=== PATIENT | male | born 2000 | race American Indian/Alaskan Native ===

== ENCOUNTER 2019-11-29 11:57 | Emergency (ER) | payer SELFPAY ==
--- NOTE | 2019-11-29 12:40 | Emergency Department Report ---
Chief Complaint: Dental/Oral Stated Complaint: TOOTH PAIN Time Seen by Provider: 11/29/19 12:36 - HPI History of Present Illness: 19-year-old -[place] male presents to the emergency room complaining of a toothache x1 week. Patient states that he bit down on something and broke the cavity on his right lower jaw. Patient states that his dental clinic is not open. Patient denies taking any pain medications. - Exam Vital Signs: Vital Signs 11/29/19 12:03 Temperature 97.7 F Pulse Rate 86 Respiratory 18 Rate Blood Pressure 125/75 O2 Sat by Pulse 97 Oximetry Physical Exam: Alert and oriented x3 no acute distress Mouth right lower jaw tooth #30 has a hole from where a cavity was placed. No gingiva enlargement no abscess appreciated MSE screening note: Focused history and physical exam performed. Due to findings the following was ordered: 19-year-old -[place] male presents to the emergency room complaining of a toothache x1 week. Patient states that he bit down on something and broke the cavity on his right lower jaw. Patient states that his dental clinic is not open. Patient denies taking any pain medications. Discussed with patient he can take [id number] ibuprofen or Tylenol for pain management. Discussed with patient that I will give him a handout to the community dentist for emergency dental evaluation. Patient requested a work excuse. ED Disposition for MSE Disposition: - MED SCREENING EXAM-LEFT Is pt being admited?: No Does the pt Need Aspirin: No Condition: Stable Instructions: Toothache (ED) Additional Instructions: Try taking Tylenol and or ibuprofen as needed for pain. It is very important for you to follow-up with a dentist as you have a broken cavity which does not require antibiotics it requires it to be filled by dentist. I have given you a copy of community dentist for follow-up. Referrals: [facility] [Outside] - 3-5 Days [facility] [Outside] - 3-5 Days [facility] [Outside] - 3-5 Days Forms: Work/School Release Form(ED)
[2019-11-29 12:41] VITALS: BP 125/75
== END 2019-11-29 12:54 | disposition left against medical advice (07) ==
LOC: ED 11:57
DX: K08.89 Other specified disorders of teeth and supporting structures (principal)
CPT/HCPCS: 99282